=== PATIENT | female | born 1965 | race Caucasian/White ===

== ENCOUNTER 2019-07-26 17:44 | Emergency (ER) | payer MEDICAID ==
[~2019-07-26] VITALS: Ht 167.6 cm; Wt 127.0 kg
--- NOTE | 2019-07-26 18:03 | NUR ---
PT REC'D TO ER VIA EMS PT STATED HAVING SI THOUGHTS QUIET AT BEDSIDE AWAITING EVALUATION BY ER PROVIDER.
--- NOTE | 2019-07-26 18:15 | NUR ---
LAB CALLED TO CX CBC RESULTS NOTIFIED
[2019-07-26 18:36] LABS: BASOPHILS % (AUTO) 0.5 % (0.0-2.0); EOSINOPHILS % (AUTO) 0.5 % (0.0-6.0); HEMATOCRIT 42 % (33-45); HEMOGLOBIN 14.1 g/dL (11.5-14.8); LYMPHOCYTES # (AUTO) 1.1 /CMM (0.8-4.8); LYMPHOCYTES % (AUTO) 18.5 % (20.0-44.0); MEAN CORPUSCULAR HGB CONC 34 g/dl (31.0-36.0); MEAN CORPUSCULAR VOLUME 87 fL (82-100); MONOCYTES # (AUTO) 0.4 /CMM (0.1-1.30); MONOCYTES % (AUTO) 7.4 % (2.0-12.0); NEUTROPHILS # (AUTO) 4.3 /CMM (1.8-8.9); NEUTROPHILS % (AUTO) 73.1 % (43.0-81.0); PLATELET COUNT (AUTO) 194 /CMM (150-450); WHITE BLOOD COUNT (AUTO) 5.9 K/uL (4.3-11.0)
[2019-07-26 18:51] LABS: CALCIUM, SERUM 9.9 mg/dL (8.5-10.1); CARBON DIOXIDE 27 mmol/L (21-32); CHLORIDE 107 mmol/L (98-107); CREATININE 1.3 mg/dL (0.6-1.3); GLUCOSE 95 mg/dL (74-106); POTASSIUM 4.1 mmol/L (3.5-5.1); SODIUM SERUM 144 mmol/L (136-145); UREA NITROGEN, BLOOD 21 mg/dL (7-18)
--- NOTE | 2019-07-26 18:53 | NUR ---
PT EATING DINNER QUIET AND CALM
[2019-07-26 18:57] LABS: APPEARANCE,URINE Slightly Cloudy (CLEAR); BILIRUBIN,URINE SMALL (NEGATIVE); BLOOD, URINE Trace-intact Ery/uL (NEGATIVE); COLOR,URINE Dark (YELLOW); KETONES,URINE Negative (NEGATIVE); LEUKOCYTE ESTERASE ,URINE Small (NEGATIVE); NITRITE, URINE Negative (NEGATIVE); PH,URINE 5.5 (5.0-8.0); PROTEIN,URINE Negative (NEGATIVE); UGLUCOSE Negative (NEGATIVE); UROBILINOGEN,URINE 0.2 EU/dL (0.2)
[2019-07-26 18:57] LABS: ALANINE AMINOTRANSFERASE 22 U/L (12-78); ALBUMIN 3.9 g/dL (3.4-5.0); ALCOHOL, BLOOD < 3 mg/dL (0-0); ALKALINE PHOSPHATASE 74 U/L (46-116); ASPARTATE AMINOTRANSFERASE 21 U/L (15-37); BILIRUBIN,DIRECT 0.2 mg/dL (0.0-0.2); TOTAL PROTEIN, SERUM 7.5 g/dL (6.4-8.2)
[2019-07-26 18:58] LABS: SALICYLATE 1.5 mg/dL (2.8-20.0)
[2019-07-26 18:59] LABS: ACETAMINOPHEN < 2 ug/ml (10-30)
[2019-07-26 19:06] LABS: BACTERIA,URINE Many /HPF (None Seen); SQUAMOUS EPITHELIAL CELL,UR Moderate /HPF (None Seen)
[2019-07-26 19:07] LABS: RBC,URINE 0-2 /HPF (0-2)
--- NOTE | 2019-07-26 19:17 | NUR ---
[facility] CALLED. ETA 60 MIN
--- NOTE | 2019-07-27 11:06 | NUR ---
called to follow up on so enma olivas bed. Lokesh, was unsure and will follow up with me after he checks with his house sup about a bed for this pt.
--- NOTE | 2019-07-27 12:08 | NUR ---
PARVEEN FROM [facility] MARGARITA GARDNER CALLED AND INFORMED ME THAT THEY ARE STILL WAITING FOR FEMALE BED AVAILABILITY. ASKED IF [facility] WOULD BE ACCEPTABLE. WE SAID ANY FEMALE BED WOULD BE ACCEPTABLE
--- NOTE | 2019-07-27 12:17 | NUR ---
SPOKE TO PARVEEN AT [facility]. INFORMED HIM OF PTS INSURANCE
--- NOTE | 2019-07-27 12:34 | NUR ---
PROVIDED WITH LUNCH TRAY. RESTING QUIETLY, NAD NOTED. WITH SITTER
--- NOTE | 2019-07-27 12:58 | NUR ---
PARVEEN FROM [facility] INFORMED ME THAT THE PT IS NOT ACCEPTED AT THEIR FACILITIES. WE ARE NOW AWAITING A BED FROM [facility]
--- NOTE | 2019-07-27 15:02 | NUR ---
CALLED [facility] FOR BED AVAILABILITY. ABDIRIZAK SAID THEY DO NOT HAVE BED AVAILABILITIES, BUT WILL INFORM ME IF/WHEN THEY DO
[2019-07-27] MEDS ORDERED: LORAZEPAM 1 MG TABLET PO ONE (18:30)
[2019-07-27] MEDS ORDERED: LORAZEPAM 1 MG TABLET ONE (18:32)
--- NOTE | 2019-07-27 18:36 | NUR ---
PT ANXIOUS, ERMD AWARE. MEDICATED ORDERED. SEE EMAR.
--- NOTE | 2019-07-28 08:41 | NUR ---
BREAKFAST TRAY PROVIDED, PATIENT TOLERATING PO WELL.
--- NOTE | 2019-07-28 08:50 | NUR ---
Social service consult requested by Dr. Garcia for suicidal ideations with a plan. Pt. is a 54 year old female who came to [facility] ED for suicidal ideations with a plan. YOEL met with pt. bedside. Pt. has all her belongings bed side. Per pt. she has been homeless for the past 3 days. She was staying with friends in [place] and got kicked out of the home. Pt. wouldn't elaborate as to why she got kicked out. Pt. is alert and oriented x 4. Pt. is obese. Pt. has a sad affect. Pt. states she has a psychiatric diagnosis of Schizoaffective disorder and takes Latuda, Trazadone and Ativan as prn. Pt. states she is suicidal with a plan to overdose on her medications. Pt. has lived in [place] and [place]. Pt. wants to go to [place] and find a place to live in the near future. Pt's emergency contact is her sister Fawn . Pt. wants SW to contact her sister and inform her that she is in the ED. SW to do so. Per MEENAKSHI Freeman, pt. is not accepted at [facility] or [place]. YOEL contacted Tyler in intake at [facility] . He requested for YOEL to fax intake packet. MEENAKSHI Freeman faxed intake packet to Tyler at . Pt,. denies any drug and alcohol use. Pt. is a non-smoker.
--- NOTE | 2019-07-28 11:06 | NUR ---
YOEL contacted Tyler in intake at [place] to follow up regarding bed availability. Tyler informed SW they have no available beds as of yet and are awaiting discharges. He did inform YOEL that they had four walk-ins so they will get first priority. SW to follow up again in a few hours.
--- NOTE | 2019-07-28 12:05 | NUR ---
YOEL informed c d area supervisor Katty Cunningham that no beds available as of yet in [place]. Katty requested for YOEL to contact c d area supervisor Rohan at [phone] to discuss the case. YOEL contacted Rohan who informed YOEL he will follow up with [place] and call YOEL back.
--- NOTE | 2019-07-28 13:32 | NUR ---
ALBERTO BERNAL FROM INTAKE, NO FEMALE BED YET AT [facility], WILL FOLLOW UP
--- NOTE | 2019-07-28 14:30 | NUR ---
WANTS TO SPEAK WITH EARTH SCIENCES PROFESSOR, KEYLA KRAUS
--- NOTE | 2019-07-28 14:34 | NUR ---
"I DON'T WANT TO HURT MYSELF, I JUST WANT TO GO HOME".
--- NOTE | 2019-07-28 14:40 | NUR ---
MANUFACTURING ENGINEER [employer] CRAIG AT BEDSIDE
--- NOTE | 2019-07-28 15:21 | NUR ---
PER PHARMACY SALES REPRESENTATIVE, PATIENT WILL GO TO [facility] IN [place]. A FRIEND WILL BUY HER TICKET ONLINE GOING TO [employer] [place].
--- NOTE | 2019-07-28 15:35 | NUR ---
SW was informed by MEENAKSHI Treviño that pt. would like to speak with the SW. SW met with the pt. in ED. Pt. was sitting by a desk making phone calls. Pt. stated, " I am no longer suicidal and I just want to go home to [place]." Pt. called [facility] and spoke with Zahraa in regards to getting a ride. Pt. has a psychiatrist and a therapist she sees there for the past 15 years. Zahraa stated they usually have drivers but not today. Pt. called a friend who booked her a [employer] bus ticket from [place] to [place] leaving tonight at 9PM. SW was able to get a taxi for the pt. to go to [employer] station located at [address] [place] [address], in [place]. Pt. states she will be residing at [address] [address] in [facility]. No other social service needs are requested at this time. Dr. Jessica and ED KEARA Becerra have been updated with pt's discharge plan.
--- NOTE | 2019-07-28 15:48 | NUR ---
CRAIG CLARKE AT BEDSIDE FOR EVAL
--- NOTE | 2019-07-28 15:52 | NUR ---
Patient assisted to waiting room in stable condition. Written and verbal after care instructions given. Patient verbalizes understanding of instruction. All belongings returned to the patient. Will set up taxi cab going to [facility].
[2019-07-28 15:54] VITALS: BP 121/74
== END 2019-07-28 15:55 | disposition home or self-care (01) ==
LOC: ER 17:45
DX: R45.851 Suicidal ideations (principal); F41.9 Anxiety disorder, unspecified; F31.9 Bipolar disorder, unspecified; F20.9 Schizophrenia, unspecified; I10 Essential (primary) hypertension; E78.5 Hyperlipidemia, unspecified; J45.909 Unspecified asthma, uncomplicated; E03.9 Hypothyroidism, unspecified; F13.20 Sedative, hypnotic or anxiolytic dependence, uncomplicated; Z59.0 Homelessness; Z88.5 Allergy status to narcotic agent
CPT/HCPCS: 36415; 80048; 80076; 80305; 80307; 80329; 81001; 85025; 87086; 99284; G0480; 81000-TC